=== PATIENT | female | born 1935 | race American Indian/Alaskan Native ===

== ENCOUNTER 2016-10-25 07:27 | Day surgery (SDC) | payer MEDICARE, OTHER ==
[2015-03-05 14:25] VITALS: BMI 27.1
[2016-10-25] MEDS ORDERED: Propofol 10 mg/ml Inj (20 ML) ONE (10:45)
[2016-10-25 12:08] VITALS: BP 130/68; PULSE 67; RESP 16; TEMP 97.9; O2SAT 95
== END 2016-10-25 13:51 | disposition home or self-care (01) ==
LOC: ENDO 07:27
PROVIDERS: ATTEND Internal Medicine Gastroenterology
DX: K21.0 Gastro-esophageal reflux disease with esophagitis (principal); K44.9 Diaphragmatic hernia without obstruction or gangrene; K29.50 Unspecified chronic gastritis without bleeding; I10 Essential (primary) hypertension
CPT/HCPCS: 43239; 88305; 88342; J2704; J7040